=== PATIENT | male | born 1990 | race Caucasian/White ===

== ENCOUNTER → 2020-06-21 | Outpatient (CLI) | payer BC ==
[2020-06-21 15:36] LABS: BASOPHILS ABSOLUTE AUTO 0.03 K/mm3 (0.00-0.23); BASOPHILS PERCENT AUTO 1 % (0-2); EOSINOPHILS ABSOLUTE AUTO 0.04 K/mm3 (0.00-0.68); EOSINOPHILS PERCENT AUTO 1 % (0-6); Hematocrit 34.2 % (37.0-53.0); IMMATURE GRAN ABSOLUTE AUTO 0.03 K/mm3 (0.00-0.10); IMMATURE GRAN PERCENT AUTO 1 % (0-1); LYMPHOCYTES ABSOLUTE AUTO 1.21 K/mm3 (0.84-5.20); LYMPHOCYTES PERCENT AUTO 18 % (21-46); MONOCYTES ABSOLUTE AUTO 0.42 K/mm3 (0.16-1.47); MONOCYTES PERCENT AUTO 6 % (4-13); Mean Corpuscular Volume 108 fL (80-100); Mean Platelet Volume 10.2 fL (9.1-12.4); NEUTROPHILS ABSOLUTE AUTO 4.84 K/mm3 (1.96-9.15); NEUTROPHILS PERCENT AUTO 74 % (41-73); Platelet Count 253 K/mm3 (150-400); RDW Standard Deviation 51.6 fL (35.1-46.3); Red Blood Cell Count 3.16 M/mm3 (4.30-5.90); White Blood Cell Count 6.57 K/mm3 (4.00-11.30)
[2020-06-21 15:41] LABS: Anion Gap 7 mmol/L (6-16); Blood Urea Nitrogen 6 mg/dL (8-24); Bun/Creatinine Ratio 7.9 (12.0-20.0); CO2, Blood 32 mmol/L (21-32); Calcium, Blood 9.6 mg/dL (8.5-10.1); Chloride, Blood 97 mmol/L (98-108); Creatinine, Blood 0.76 mg/dL (0.60-1.20); Glomerular Filtration Rate >60 (60-); Glucose, Blood 119 mg/dL (70-99); Potassium, Blood 3.9 mmol/L (3.5-5.5); Sodium, Blood 136 mmol/L (136-145)
[2020-06-21 15:47] LABS: Hemoglobin 12.9 g/dL (13.5-17.5); Mean Corpuscular HGB 40.8 pg (26.0-34.0); Mean Corpuscular HGB Conc 37.7 g/dL (31.5-36.5)
[2020-06-21 16:23] LABS: International Normalized Ratio 1.04; Prothrombin Time Results 11.1 Sec (9.7-11.5)
== END ==
LOC: LAB EV 15:29 → LAB SHORT 15:29
PROVIDERS: Physician Assistant
DX: R31.9 Hematuria, unspecified (principal)
CPT/HCPCS: 80048; 85025; 85610

== ENCOUNTER → 2020-07-22 | Outpatient (CLI) | payer BC | END | disposition home or self-care (01) | LOC: LAB SHORT 17:42 → LAB EV 17:42 | DX: R31.9 Hematuria, unspecified (principal) | CPT/HCPCS: 87086 ==

== ENCOUNTER 2020-08-20 12:10 | Emergency (ER) | payer BC ==
[~2020-08-20] VITALS: Ht 180.3 cm; Wt 63.5 kg
[2020-08-20 14:00] LABS: BASOPHILS ABSOLUTE AUTO 0.05 K/mm3 (0.00-0.23); BASOPHILS PERCENT AUTO 1 % (0-2); EOSINOPHILS ABSOLUTE AUTO 0.02 K/mm3 (0.00-0.68); EOSINOPHILS PERCENT AUTO 0 % (0-6); Hematocrit 37.3 % (37.0-53.0); Hemoglobin 13.7 g/dL (13.5-17.5); IMMATURE GRAN ABSOLUTE AUTO 0.04 K/mm3 (0.00-0.10); IMMATURE GRAN PERCENT AUTO 1 % (0-1); LYMPHOCYTES ABSOLUTE AUTO 0.89 K/mm3 (0.84-5.20); LYMPHOCYTES PERCENT AUTO 12 % (21-46); MONOCYTES ABSOLUTE AUTO 0.45 K/mm3 (0.16-1.47); MONOCYTES PERCENT AUTO 6 % (4-13); Mean Corpuscular HGB 37.7 pg (26.0-34.0); Mean Corpuscular HGB Conc 36.7 g/dL (31.5-36.5); Mean Corpuscular Volume 103 fL (80-100); NEUTROPHILS PERCENT AUTO 80 % (41-73); RDW Coefficient Variation 14.6 % (11.7-14.2); RDW Standard Deviation 55.6 fL (35.1-46.3); Red Blood Cell Count 3.63 M/mm3 (4.30-5.90); White Blood Cell Count 7.25 K/mm3 (4.00-11.30)
[2020-08-20 14:11] LABS: Alanine Aminotransfer (ALT/SGP 35 U/L (12-78); Albumin, Blood 3.5 g/dL (3.4-5.0); Albumin/Globulin Ratio 1.3 (0.8-1.8); Alk Phos 111 U/L (50-136); Anion Gap 5 mmol/L (6-16); Aspartate Aminotrans (AST/SGOT 50 U/L (12-37); Bilirubin, Total 1.7 mg/dL (0.1-1.0); Blood Urea Nitrogen 8 mg/dL (8-24); Bun/Creatinine Ratio 11.7 (12.0-20.0); CO2, Blood 29 mmol/L (21-32); Chloride, Blood 100 mmol/L (98-108); Creatinine, Blood 0.68 mg/dL (0.60-1.20); Globulin, Blood 2.7 g/dL (2.2-4.0); Glomerular Filtration Rate >60 (60-); Glucose, Blood 153 mg/dL (70-99); Magnesium, Blood 1.9 mg/dL (1.6-2.4); Potassium, Blood 4.3 mmol/L (3.5-5.5); Sodium, Blood 134 mmol/L (136-145); Total Protein, Blood 6.2 g/dL (6.4-8.2)
[2020-08-20 14:16] LABS: Mean Platelet Volume 10.5 fL (9.1-12.4); Platelet Count 198 K/mm3 (150-400)
[2020-08-20 15:38] LABS: U Amphetamine Screen Not Detected; U Barbituate Screen Not Detected; U Benzodiazapine Screen Not Detected; U Buprenorphine Screen Not Detected; U Cannabinoids Screen DETECTED; U Cocaine Screen Not Detected; U Methadone Screen Not Detected; U Methamphetamine Screen Not Detected; U Opiates Screen Not Detected; U Oxycodone Screen Not Detected; U Phencyclidine Screen Not Detected; U Propoxyphene Screen Not Detected
[2020-08-20] MEDS ORDERED: Ativan1 MG SL (15:48)
[2020-08-20] MEDS ORDERED: PEPCID40 MG PO (15:48)
== END 2020-08-20 16:10 | disposition home or self-care (01) ==
LOC: ER 12:10
PROVIDERS: Emergency Medicine
DX: R56.9 Unspecified convulsions (principal); F41.0 Panic disorder [episodic paroxysmal anxiety]; Z79.899 Other long term (current) drug therapy
CPT/HCPCS: 70450; 80053; 83735; 84443; 85025; 93005; 93010; 99285-25

== ENCOUNTER 2020-12-19 07:18 | Day surgery (SDC) | payer BC ==
[~2020-12-19] VITALS: Ht 175.3 cm; Wt 67.3 kg
[~2020-12-19 07:18] MED LIST: Ativan1 MG SL; PEPCID40 MG PO
== END 2020-12-19 09:30 | disposition home or self-care (01) ==
LOC: ORSCSDS 07:18
PROVIDERS: Internal Medicine Gastroenterology
PROC: 0DBE8ZX Excision of Large Intestine, Via Natural or Artificial Opening Endoscopic, Diagnostic (ICD-10-PCS; principal; 2020-12-19 08:30)
PROC: 0DB98ZX Excision of Duodenum, Via Natural or Artificial Opening Endoscopic, Diagnostic (ICD-10-PCS; principal; 2020-12-19 08:30)
PROC: 0DB78ZX Excision of Stomach, Pylorus, Via Natural or Artificial Opening Endoscopic, Diagnostic (ICD-10-PCS; principal; 2020-12-19 08:30)
PROC: 0DB58ZX Excision of Esophagus, Via Natural or Artificial Opening Endoscopic, Diagnostic (ICD-10-PCS; principal; 2020-12-19 08:30)
DX: R19.4 Change in bowel habit (principal); K90.0 Celiac disease; R10.13 Epigastric pain; K29.80 Duodenitis without bleeding; K21.00 Gastro-esophageal reflux disease with esophagitis, without bleeding; K57.30 Diverticulosis of large intestine without perforation or abscess without bleeding; K44.9 Diaphragmatic hernia without obstruction or gangrene; K64.1 Second degree hemorrhoids; F41.9 Anxiety disorder, unspecified; Z79.899 Other long term (current) drug therapy
CPT/HCPCS: 88305; 88312; 88342; J2250; J2405; J2704; J7120

== ENCOUNTER 2022-01-18 15:25 | Emergency (ER) | payer BC ==
[~2022-01-18] VITALS: Ht 170.2 cm; Wt 63.5 kg
[2022-01-18 16:14] LABS: BASOPHILS ABSOLUTE AUTO 0.07 K/mm3 (0.00-0.23); BASOPHILS PERCENT AUTO 1 % (0-2); EOSINOPHILS PERCENT AUTO 0 % (0-6); Hemoglobin 14.1 g/dL (13.5-17.5); IMMATURE GRAN ABSOLUTE AUTO 0.04 K/mm3 (0.00-0.10); IMMATURE GRAN PERCENT AUTO 0 % (0-1); LYMPHOCYTES ABSOLUTE AUTO 0.84 K/mm3 (0.84-5.20); LYMPHOCYTES PERCENT AUTO 7 % (21-46); MONOCYTES ABSOLUTE AUTO 0.89 K/mm3 (0.16-1.47); MONOCYTES PERCENT AUTO 7 % (4-13); Mean Corpuscular HGB Conc 37.1 g/dL (31.5-36.5); Mean Corpuscular Volume 102 fL (80-100); Mean Platelet Volume 10.6 fL (9.1-12.4); NEUTROPHILS ABSOLUTE AUTO 11.12 K/mm3 (1.96-9.15); NEUTROPHILS PERCENT AUTO 86 % (41-73); Platelet Count 233 K/mm3 (150-400); RDW Coefficient Variation 12.9 % (11.7-14.2); RDW Standard Deviation 48.9 fL (35.1-46.3); Red Blood Cell Count 3.71 M/mm3 (4.30-5.90); White Blood Cell Count 12.96 K/mm3 (4.00-11.30)
[2022-01-18 16:32] LABS: Alanine Aminotransfer (ALT/SGP 66 U/L (12-78); Albumin, Blood 4.2 g/dL (3.4-5.0); Albumin/Globulin Ratio 1.4 (0.8-1.8); Alk Phos 117 U/L (50-136); Anion Gap 13 mmol/L (6-16); Aspartate Aminotrans (AST/SGOT 103 U/L (12-37); Bilirubin, Total 2.7 mg/dL (0.1-1.0); Blood Urea Nitrogen 7 mg/dL (8-24); Bun/Creatinine Ratio 9.5 (12.0-20.0); CO2, Blood 24 mmol/L (21-32); Calcium, Blood 9.6 mg/dL (8.5-10.1); Chloride, Blood 100 mmol/L (98-108); Creatinine, Blood 0.73 mg/dL (0.60-1.20); Glomerular Filtration Rate >60 (60-); Glucose, Blood 144 mg/dL (70-99); Potassium, Blood 3.9 mmol/L (3.5-5.5); Sodium, Blood 137 mmol/L (136-145); Total Protein, Blood 7.2 g/dL (6.4-8.2)
[2022-01-18] MEDS ORDERED: SUCRALFATE PO (17:09)
[2022-01-18] MEDS ORDERED: ROWEEPRA XR500 MG PO (17:09)
[2022-01-18] MEDS ORDERED: ONDA4ODT MM (20:59)
[2022-01-18] MEDS ORDERED: PROM12.5S PR (20:59)
== END 2022-01-18 21:11 | disposition home or self-care (01) ==
LOC: ER 15:25
PROVIDERS: Physician Assistant
DX: G40.909 Epilepsy, unspecified, not intractable, without status epilepticus (principal); Z91.14 Patient's other noncompliance with medication regimen; J02.9 Acute pharyngitis, unspecified; R11.2 Nausea with vomiting, unspecified; R10.13 Epigastric pain; Z79.899 Other long term (current) drug therapy
CPT/HCPCS: 36415; 76705; 80053; 82248; 83690; 85025; 86850; 86900; 86901; A9270; J1790; J1885; J1953; J2405; J7030

== ENCOUNTER → 2022-08-28 | Outpatient (CLI) | payer BC ==
[~2022-08-28] MED LIST changes: +Ativan1 MG PO; +FAMO20 PO; +KEPPRA100 MG/1 M PO; +MULVITA PO; +ONDA4ODT MM; +PROM12.5S PR; +Q-Tussin100 MG/5 M PO; +ROWEEPRA XR500 MG PO; +SUCRALFATE PO; +TRAM50 PO
[2022-08-28 11:59] LABS: Bun/Creatinine Ratio 5.8 (12.0-20.0); Creatinine, Blood 0.69 mg/dL (0.60-1.20); Potassium, Blood 3.8 mmol/L (3.5-5.5)
== END | disposition home or self-care (01) ==
LOC: LAB 09:57 → LAB SHORT 09:57
PROVIDERS: Surgery
DX: Z01.812 Encounter for preprocedural laboratory examination (principal)
CPT/HCPCS: 36415; 80048

== ENCOUNTER 2022-08-29 08:36 | Day surgery (SDC) | payer BC ==
[~2022-08-29] VITALS: Ht 180.3 cm; Wt 62.6 kg
[~2022-08-29 08:36] MED LIST changes: -KEPPRA100 MG/1 M PO; -Q-Tussin100 MG/5 M PO; -TRAM50 PO
[2022-08-29] MEDS ORDERED: Q-Tussin100 MG/5 M PO (08:55)
--- NOTE | 2022-08-29 09:22 | NUR ---
History, Chart, Medications and Allergies reviewed before start of procedure. Patient confirms NPO status and agrees with scheduled surgery. PT BELONGINGS PLACED UNDERNEATH GURNEY FOR SAFEKEEPING. PT JEWELRY GIVEN TO FOR SAFEKEEPING.
--- NOTE | 2022-08-29 10:42 | NUR ---
08/29/22 1042 Riddhi Hernandez NO PREOP ANTIBIOTICS ORDERED PER .
--- NOTE | 2022-08-29 16:23 | NUR ---
ADMISSION: REPORT RECEIVED FROM DISTRIBUTOR PUBLICATION[employer]AMAIRANI ORANTES. PT TO UNIT AT 1500. A/O VSS. SURGICAL SITES WNL. REPORTS PAIN 03/30, MEDICATED PER EMAR. PT AT BEDSIDE
--- NOTE | 2022-08-29 17:31 | NUR ---
SUMMARY: NO CHANGE SINCE POST OP. VSS, A/O. PT ABLE TO SLEEP SOME AND TOLERATING CLEAR LIQ WITHOUT DIFFICULTLY. SUGICAL SITES WNL. PT ENCOURAGED TO WALK, HAS COMPLAINED OF SOME GAS PAINS. USING CALL LIGHT, PT AT BEDSIDE.
--- NOTE | 2022-08-30 05:37 | NUR ---
PTS BP 144/103 AND CONFIRMED.PT HAS NOTED MILD TREMOR TO EXT.REPORTS ANXIOUS THIS AM.REPORTS HAVING "NIGHT TERRORS" STATES THIS IS FREQUENT FOR HIM AT HOME.VERB DIASTOLIC AT THIS LEVEL NOT UNCOMMON FOR HIM WHEN HE FIRST WAKES UP. ADVISED I SPOKE WITH DR CARRERA AND SHE IS AWARE OF VS AND LAST DOSE OF ATIVAN GIVEN AT [address] ORDERED ADDITIONAL 1 MG DOSE.PT VERB HE WILL REFUSE IT. I ALSO ADVISED HIM DR WAS ADDITIONALLY ORDERING BP MED AND PT STATES HE WILL ALSO REFUSE THIS.VERB HE IS FEELING CALMER. 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
--- NOTE | 2022-08-30 11:15 | NUR ---
DR CARRERA IN TO SEE PT.
[2022-08-30] MEDS ORDERED: KEPPRA100 MG/1 M PO (11:38)
[2022-08-30] MEDS ORDERED: Ativan1 MG PO (11:39)
[2022-08-30] MEDS ORDERED: ONDA4ODT MM (11:39)
[2022-08-30] MEDS ORDERED: TRAM50 PO (11:40)
--- NOTE | 2022-08-30 12:00 | NUR ---
DISCHARGING PT DC'D IV, CATHETER INTACT. REVIEWED DC INSTRUCTIONS W/PT AND SPOUSE; VERBALIZED UNDERSTANDING. PT GETTING DRESSED AND PATIENT SUPPORT ASSISTANT STANDING BY TO TAKE PRE DC SET OF VS. PT DECLINED OFFER OF WC, WANTS TO WALK OUT. SPOUSE BEDSIDE.
--- NOTE | 2022-08-30 12:03 | NUR ---
PT LEFT UNIT BY AMBULATION, ACCOMPANIED BY SPOUSE W/POSSESSIONS AND DC PAPERWORK IN HAND.
== END 2022-08-30 12:22 | disposition home or self-care (01) ==
LOC: ORSCMMR 08:36 → ORD 10:00 → SURS 14:32 → ORSCMMR 08-30 12:22
PROVIDERS: Surgery
PROC: 0DV44ZZ Restriction of Esophagogastric Junction, Percutaneous Endoscopic Approach (ICD-10-PCS; principal; 2022-08-29 10:30)
PROC: 8E0W4CZ Robotic Assisted Procedure of Trunk Region, Percutaneous Endoscopic Approach (ICD-10-PCS; principal; 2022-08-29 10:30)
PROC: 0BQT4ZZ Repair Diaphragm, Percutaneous Endoscopic Approach (ICD-10-PCS; principal; 2022-08-29 10:30)
DX: K21.00 Gastro-esophageal reflux disease with esophagitis, without bleeding (principal); K44.9 Diaphragmatic hernia without obstruction or gangrene; K70.0 Alcoholic fatty liver; Z23 Encounter for immunization
CPT/HCPCS: 43280; S2900; 90686; A9270; J1100; J1650; J1885; J2250; J2405; J2704; J2795; J3010; J7120

== ENCOUNTER 2022-11-22 16:33 | Emergency (ER) | payer BC ==
[~2022-11-22] VITALS: Ht 182.9 cm; Wt 61.2 kg
[~2022-11-22 16:33] MED LIST changes: +KEPPRA100 MG/1 M PO; +Q-Tussin100 MG/5 M PO; +TRAM50 PO
== END 2022-11-22 18:39 | disposition home or self-care (01) ==
LOC: ER 16:33
DX: R56.9 Unspecified convulsions (principal); Z79.899 Other long term (current) drug therapy
CPT/HCPCS: 96374; 99284-25; A9270; J2060; J2405; J7030